=== PATIENT | male | born 1955 | race African-American/Black ===

== ENCOUNTER 2020-07-02 17:56 | Emergency (ER) | payer SELFPAY ==
[~2020-07-02] VITALS: Ht 188 cm; Wt 103.0 kg
[~2020-07-02 17:56] MED LIST: ATEN50TA41 PO; CLON0.1T22 PO; HYDR-1067 PO; PANT20TA4 PO; TRAZ-175 PO
--- NOTE | 2020-07-02 18:39 | NUR ---
PLACED ON 2L NC ROOM AIR POX TO 87% WITH GOOD WAVEFORM
[2020-07-02] MEDS ORDERED: SODIUM CHLORIDE 0.9% 1,000ML IVBOLUS ONE (19:00)
[2020-07-02] MEDS ORDERED: SODIUM CHLORIDE FLUSH 10ML SYR IVF ONE (19:00)
--- NOTE | 2020-07-02 19:02 | NUR ---
REPORT TO OSMAN DE DIOS
--- NOTE | 2020-07-02 19:06 | NUR ---
PT RESTING IN [facility]. NO NEEDS AT THIS TIME. IV FLUIDS INFUSING
[2020-07-02 19:22] LABS: BASOPHILS % (AUTO) 1 % (0-1); EOSINOPHILS % (AUTO) 0 % (1-7); LYMPHOCYTES % (AUTO) 10 % (22-44); MEAN CORPUSCULAR HEMOGLOBIN 32.9 pg (27.5-34.5); MEAN CORPUSCULAR HGB CONC 34.4 g/dL (33.2-36.2); MEAN PLATELET VOLUME 8.6 fL (7.4-10.4); MONOCYTES % (AUTO) 10 % (2-9); NEUTROPHILS % (AUTO) 80 % (42-75); PLATELET COUNT 208 x10^3/uL (130-400); RED CELL DISTRIBUTION WIDTH 14.1 % (9.4-14.8)
[2020-07-02 19:28] LABS: ALBUMIN 3.9 g/dL (3.4-5.0); ANION GAP 10 mmol/L (5-15); CHLORIDE 102 mmol/L (98-107)
[2020-07-02 19:33] LABS: ALANINE AMINOTRANSFERASE 27 U/L (12-78); ALKALINE PHOSPHATASE 87 U/L (45-117); CREATININE 1.46 mg/dL (0.7-1.3); TOTAL PROTEIN 8.2 g/dL (6.4-8.2); TROPONIN I < 0.015 ng/mL (0.000-0.045)
[2020-07-02 20:06] LABS: MD SCAN
[2020-07-02 20:27] LABS: MICROSCOPIC INDICATED
--- NOTE | 2020-07-02 21:17 | NUR ---
TASK RN: PT COVID SWABBED, SWAB WALKED TO LAB BY THIS RN. PT TOLERATED WELL, NAD, RESTING ON GURNEY, NO CHANGE IN CONDITION. BED IN LOWEST, RAILS ENGAGED, CALL LIGHT ON LAP.
[2020-07-02 21:33] VITALS: BP 155/77
== END 2020-07-02 22:18 | disposition home or self-care (01) ==
LOC: ED 18:45
DX: U07.1 COVID-19 (principal); N39.0 Urinary tract infection, site not specified; R50.9 Fever, unspecified; F10.10 Alcohol abuse, uncomplicated; J84.9 Interstitial pulmonary disease, unspecified; R55 Syncope and collapse; R42 Dizziness and giddiness; R06.02 Shortness of breath; R11.2 Nausea with vomiting, unspecified; R05 Cough; I10 Essential (primary) hypertension; E87.6 Hypokalemia; F17.210 Nicotine dependence, cigarettes, uncomplicated; Z86.73 Personal history of transient ischemic attack (TIA), and cerebral infarction without residual deficits; Y90.0 Blood alcohol level of less than 20 mg/100 ml
CPT/HCPCS: 36415; 71046; 80053; 81001; 83690; 84484; 85025; 87086; 87491; 87591; 87635; 93005; 99285

== ENCOUNTER 2020-10-07 17:56 | Emergency (ER) | payer OTHER ==
[~2020-10-07] VITALS: Ht 190.5 cm; Wt 102.0 kg
[~2020-10-07 17:56] MED LIST changes: -HYDR-1067 PO; +HYDR-2214 PO
[2020-10-07] MEDS ORDERED: AMLO-211 PO (18:50)
[2020-10-07] MEDS ORDERED: METOPROLOL (18:50)
--- NOTE | 2020-10-07 18:50 | NUR ---
FIRST CONTACT WITH PT. [facility] SPEAKING IN FULL SENTENCES WO DIFFICULTY, SPO2 >90% ON RA. PT REPORTS EXERTIONAL DYSPNEA AND INTERMITTENT DIZZINESS X "A WEEK OR SO". HX OF COVID REQUIRING HOSPITAL ADMIT, "THIS FEELS A LOT LIKE I DID THEN- JUST VERY RUN DOWN AND DIZZY, LIKE I WOULD PASS OUT DRIVING". BP/SPO2/ECG MONITORING IN PLACE. NSR ON MONITOR. RR WNL.
[2020-10-07] MEDS ORDERED: KETOROLAC 30 MG/1 ML IM ONE (19:30)
[2020-10-07] MEDS ORDERED: MAALOX/HYOSCYAMINE/LIDOCAINE 45 ML BTL PO ONE (19:30)
[2020-10-07 19:38] LABS: BASOPHILS % (AUTO) 1 % (0-1); EOSINOPHILS % (AUTO) 0 % (1-7); LYMPHOCYTES % (AUTO) 14 % (22-44); MD NO; MEAN CORPUSCULAR HEMOGLOBIN 32.9 pg (27.5-34.5); MEAN CORPUSCULAR HGB CONC 34.1 g/dL (33.2-36.2); MEAN PLATELET VOLUME 8.8 fL (7.4-10.4); MONOCYTES % (AUTO) 8 % (2-9); NEUTROPHILS % (AUTO) 77 % (42-75); PLATELET COUNT 298 x10^3/uL (130-400); RED BLOOD COUNT 5.08 x10^6/uL (4.38-5.82); RED CELL DISTRIBUTION WIDTH 14.3 % (9.4-14.8)
[2020-10-07] MEDS ORDERED: MAALOX/HYOSCYAMINE/LIDOCAINE 45 ML BTL ONE (19:46)
[2020-10-07] MEDS ORDERED: KETOROLAC 30 MG/1 ML ONE (19:46)
[2020-10-07 19:48] LABS: ALANINE AMINOTRANSFERASE 22 U/L (12-78); ANION GAP 8 mmol/L (5-15); CALCIUM 9.8 mg/dL (8.5-10.1); CHLORIDE 105 mmol/L (98-107); CREATININE 1.37 mg/dL (0.7-1.3)
[2020-10-07 19:50] LABS: ALKALINE PHOSPHATASE 68 U/L (45-117); BILIRUBIN,TOTAL 1.2 mg/dL (0.2-1.0); TOTAL PROTEIN 8.5 g/dL (6.4-8.2)
--- NOTE | 2020-10-07 19:55 | NUR ---
PT AMBULATED STEADILY TO BATHROOM WO ASSITANCE. MEDICATED PER EMAR
[2020-10-07 19:56] VITALS: BP 119/80
--- NOTE | 2020-10-07 20:23 | NUR ---
COVID SWAB COLLECTED AND WALKED TO LAB
--- NOTE | 2020-10-07 20:44 | NUR ---
DC EDUCATION PROVIDED, PT DEMONSTRATES UNDERSTANDING. PT AMBULATED STEADILY TO DC W RN
== END 2020-10-07 20:46 | disposition home or self-care (01) ==
LOC: ED 19:14
DX: R06.00 Dyspnea, unspecified (principal); Z20.822 Contact with and (suspected) exposure to COVID-19; R10.13 Epigastric pain; R42 Dizziness and giddiness; R94.31 Abnormal electrocardiogram [ECG] [EKG]; F17.210 Nicotine dependence, cigarettes, uncomplicated; I10 Essential (primary) hypertension; Z86.73 Personal history of transient ischemic attack (TIA), and cerebral infarction without residual deficits
CPT/HCPCS: 36415; 71045; 80053; 83690; 85025; 93005; 96372; 99285; 99406; J1885; U0003; U0005